=== PATIENT | female | born 1990 | race African-American/Black ===

== ENCOUNTER 2019-02-06 11:27 | Emergency (ER) | payer SELFPAY ==
[2019-02-06] MEDS ORDERED: Cyclobenzaprine 10 MG TAB ONE (11:59)
[2019-02-06] MEDS ORDERED: Ibuprofen 800 MG TAB ONE (11:59)
== END 2019-02-06 12:19 | disposition home or self-care (01) ==
LOC: MADERS 11:27
DX: S16.1XXA Strain of muscle, fascia and tendon at neck level, initial encounter (principal); S39.82XA Other specified injuries of lower back, initial encounter; S29.8XXA Other specified injuries of thorax, initial encounter; R19.7 Diarrhea, unspecified; R10.9 Unspecified abdominal pain; F17.210 Nicotine dependence, cigarettes, uncomplicated; V89.2XXA Person injured in unspecified motor-vehicle accident, traffic, initial encounter
CPT/HCPCS: 99406

== ENCOUNTER 2019-02-08 22:39 | Emergency (ER) | payer SELFPAY ==
[2019-02-08] MEDS ORDERED: Azithromycin 250 MG TAB ONE (23:13)
== END 2019-02-08 23:40 | disposition home or self-care (01) ==
LOC: MADERS 22:39
DX: R19.7 Diarrhea, unspecified (principal); F17.210 Nicotine dependence, cigarettes, uncomplicated
CPT/HCPCS: 83630; 87045; 87046; 87081; 87205; 87427; 87449; 99284

== ENCOUNTER 2019-04-13 08:56 | Emergency (ER) | payer OTHER, SELFPAY | END 2019-04-13 09:25 | disposition home or self-care (01) | LOC: MADERS 08:56 | DX: J06.9 Acute upper respiratory infection, unspecified (principal); F17.210 Nicotine dependence, cigarettes, uncomplicated | CPT/HCPCS: 99281 ==

== ENCOUNTER 2019-04-24 17:31 | Emergency (ER) | payer SELFPAY | END 2019-04-24 18:30 | disposition home or self-care (01) | LOC: MADERS 17:31 | DX: S46.911A Strain of unspecified muscle, fascia and tendon at shoulder and upper arm level, right arm, initial encounter (principal); F17.210 Nicotine dependence, cigarettes, uncomplicated | CPT/HCPCS: 99283 ==

== ENCOUNTER 2019-08-27 19:52 | Emergency (ER) | payer SELFPAY ==
[2019-08-27] MEDS ORDERED: Oxymetazoline HCl 0.05% (30 ML BOT) ONE ×2 (20:14→20:15)
== END 2019-08-27 20:18 | disposition home or self-care (01) ==
LOC: MADERS 19:52
DX: H92.01 Otalgia, right ear (principal); F17.210 Nicotine dependence, cigarettes, uncomplicated
CPT/HCPCS: 99282

== ENCOUNTER 2020-03-07 09:41 | Emergency (ER) | payer SELFPAY | END 2020-03-07 10:20 | disposition home or self-care (01) | LOC: MADERS 09:41 | DX: J06.9 Acute upper respiratory infection, unspecified (principal); F17.210 Nicotine dependence, cigarettes, uncomplicated | CPT/HCPCS: 99283 ==